=== PATIENT | female | born 1985 ===

== ENCOUNTER 2018-03-29 09:02 | Emergency (ER) | payer OTHER ==
[2018-03-29 09:09] VITALS: BMI 25.7
[2018-03-29 09:11] VITALS: BP 115/68; PULSE 79; TEMP 98.8; O2SAT 100
[2018-03-29] MEDS ORDERED: Amoxicillin-Clav 875-125 mg Tab PO STA (09:33)
--- NOTE | 2018-03-29 09:36 | C.PDOC ---
History Of Present Illness 32 yo female, currently breast-feeding, comes in for evaluation of left breast pain, redness, swelling gradually developed for past 2 days. Pt denies fever, chills, open wounds, CP, SOB, dyspnea, denies previous sx in past, denies any other active complaints. Ambulate to Ed for evaluation, not in any apparent distress. Time Seen by Provider: 03/29/18 09:03 Chief Complaint (Nursing): Breast Problem History Per: Patient Past Medical History Reviewed: Historical Data, Nursing Documentation, Vital Signs Vital Signs: Last Vital Signs Temp 98.8 F 03/29/18 09:10 Pulse 79 03/29/18 09:10 Resp 17 03/29/18 09:10 BP 115/68 03/29/18 09:10 Pulse Ox 100 03/29/18 09:10 - Medical History PMH: No Chronic Diseases Family History: States: Unknown Family Hx - Social History Hx Tobacco Use: No Hx Alcohol Use: No Hx Substance Use: No - Immunization History Hx Tetanus Toxoid Vaccination: No Review Of Systems Except As Marked, All Systems Reviewed And Found Negative. Constitutional: Negative for: Fever, Chills ENT: Negative for: Nose Congestion, Throat Pain Cardiovascular: Negative for: Chest Pain, Palpitations Respiratory: Negative for: Cough, Shortness of Breath, Wheezing Gastrointestinal: Negative for: Nausea, Vomiting, Abdominal Pain, Diarrhea Genitourinary: Negative for: Dysuria Musculoskeletal: Negative for: Neck Pain, Back Pain Skin: Positive for: Other (left breast pain, swelling, redness). Negative for: Lesions Neurological: Negative for: Headache, Dizziness Physical Exam - Physical Exam Appears: Well, Non-toxic, No Acute Distress Skin: Normal Color, Warm, Dry, No Rash Head: Normacephalic Eye(s): bilateral: PERRL Nose: No Flaring Oral Mucosa: Moist Throat: No Erythema, No Drooling Neck: Trachea Midline, Supple Chest: Symmetrical, Other (left breast: tenderness mass with mild erythema at 3 o'clock. NO open wound, no niplle changes.) Cardiovascular: Rhythm Regular, No Murmur, No JVD Respiratory: No Decreased Breath Sounds, No Accessory Muscle Use, No Stridor, No Wheezing Gastrointestinal/Abdominal: Soft, No Tenderness, No Distention, No Guarding, No Rebound Back: No CVA Tenderness Extremity: Normal ROM, No Deformity, No Swelling Neurological/Psych: Oriented x3, Normal Speech ED Course And Treatment O2 Sat by Pulse Oximetry: 100 Pulse Ox Interpretation: Normal Progress Note: On re-eval, pt is afebrile, hemodynamicaly stable. Non-toxic. neck: Supple, (-) JVD. Lungs: CTA B/L, BS equal B/L. left breast: exam c/w mastitis. NO open wounds, no nipple changes. Right breast exam- normal. Abd: benign, (-) guarding, (-) rebound. Back: (-) CVA tenderness. Pt advised on course of ds. ref. to f/u with PMD, THER[employer]S SUPERVISOR in 2-3 days for re-eval. return if any new changes. Disposition Counseled Patient/Family Regarding: Diagnosis, Need For Followup, Rx Given - Disposition Referrals: [facility] [Outside] [facility] [Outside] Disposition: HOME/ ROUTINE Disposition Time: 09:34 Condition: STABLE Additional Instructions: Warm compresses to painful area of breast Empty breast during the breast pumping completely take medication as prescribed follow up with [employer]ER[employer]S SUPERVISOR in 2-3 days for re-evaluation. return to ED if any worsening or new changes. Prescriptions: Amoxicillin/Clavulanate [Augmentin 875 MG-125 MG] 1 tab PO BID #14 tab Instructions: Breast Care for the Breast Feeding Mother (ED), Common Problems, Mastitis Print Language: BELARUSIAN - Clinical Impression Clinical Impression: Mastitis
[2018-03-29] MEDS ORDERED: Amoxicillin-Clav 875-125 mg Tab PO ONE (09:43)
[2018-03-29 09:52] VITALS: RESP 18
== END 2018-03-29 09:51 | disposition home or self-care (01) ==
LOC: C.ER 09:02
DX: N61.0 Mastitis without abscess (principal)

== ENCOUNTER 2018-03-31 23:22 | Observation (INO) | payer OTHER ==
[2018-03-31 23:22] VITALS: BMI 25.7
--- NOTE | 2018-04-01 00:16 | C.PDOC ---
History Of Present Illness Patient presents to the ER with a complaint of left breast pain. Patient is currently breast feeding, she was seen here 2-3 days ago for similar complaint, she has been compliant with her medications, applying warm compresses, but st ates her her symptoms have been worsening. She has also been using a pump to drain her breast with no relief. Denies fever or chills. Time Seen by Provider: 04/01/18 00:16 Chief Complaint (Nursing): Breast Problem History Per: Patient History/Exam Limitations: no limitations Onset/Duration Of Symptoms: Days Current Symptoms Are (Timing): Still Present Severity: Moderate Pain Scale Rating Of: 4 Recent travel outside of the [place]: No Past Medical History Reviewed: Historical Data, Nursing Documentation, Vital Signs Vital Signs: Last Vital Signs Temp 99.0 F 03/31/18 23:31 Pulse 109 H 03/31/18 23:31 Resp 18 03/31/18 23:31 BP 111/70 03/31/18 23:31 Pulse Ox 99 03/31/18 23:31 Family History: States: No Known Family Hx - Social History Hx Tobacco Use: No Hx Alcohol Use: No Hx Substance Use: No - Immunization History Hx Tetanus Toxoid Vaccination: No Review Of Systems Constitutional: Negative for: Fever, Chills Cardiovascular: Negative for: Chest Pain, Palpitations Respiratory: Negative for: Cough, Shortness of Breath Gastrointestinal: Negative for: Nausea, Vomiting Musculoskeletal: Positive for: Other (Left breast pain) Neurological: Negative for: Weakness, Numbness Physical Exam - Physical Exam Appears: Non-toxic Skin: Warm, Dry Head: Normacephalic Eye(s): bilateral: Normal Inspection Oral Mucosa: Moist Neck: Trachea Midline, Supple Chest: Other (6x10cm area of induration to left upper lateral quadrant of left breast with mild diffuse erythema, lactating, no exudates.) Cardiovascular: Rhythm Regular Respiratory: No Rales, No Rhonchi, No Wheezing Gastrointestinal/Abdominal: Soft, No Tenderness Neurological/Psych: Oriented x3 ED Course And Treatment - Laboratory Results Result Diagrams: 04/01/18 00:47 04/01/18 00:47 O2 Sat by Pulse Oximetry: 99 (room air) Pulse Ox Interpretation: Normal Progress Note: Blood work, urinalysis, and breast US ordered. IV fluids administered. Disposition Discussed With : Mac Nam Comment: accepted the pt on her service and took over the care at 3:49 AM Doctor Will See Patient In The: ED Counseled Patient/Family Regarding: Studies Performed, Diagnosis - Disposition Disposition: HOSPITALIZED Disposition Time: 00:16 Condition: FAIR Forms: [facility] (Kazakh) - POA Present On Arrival: None - Clinical Impression Clinical Impression: Abscess of breast - Scribe Statement The provider has reviewed the documentation as recorded by the Scribe Armaan Reid All medical record entries made by the Scribe were at my direction and personally dictated by me. I have reviewed the chart and agree that the record accurately reflects my personal performance of the history, physical exam, medical decision making, and the department course for this patient. I have also personally directed, reviewed, and agree with the discharge instructions and disposition. Decision To Admit - Pt Status Changed To: Hospital Disposition Of: Inpatient - Admit Certification Admit to Inpatient:: After my assessment, the patient will require hospitaliz ation for at least two midnights. This is because of the severity of symptoms shown, intensity of services needed, and/or the medical risk in this patient being treated as an outpatient. - InPatient: Physician Admission Certification: I certify that this patient requires 2 or more midnights of care for the following reason:: After my assessment, the patient will require hospitalization for at least two midnights. This is because of the severity of symptoms shown, intensity of services needed, and/or the medical risk in this patient being treated as an outpatient. - . Bed Request Type: Regular Admitting Physician: Mac Nam Patient Diagnosis: Abscess of breast
[2018-04-01] MEDS ORDERED: Sodium Chloride 0.9% 1,000 ML IV ONE (00:24)
[2018-04-01 00:54] LABS: BASO # 0.1 K/uL (0.0-0.2); BASO % 0.4 % (0.0-2.0); EOS # 0.1 K/uL (0.0-0.7); EOS % 0.7 % (0.0-4.0); HEMOGLOBIN 9.6 g/dL (11.0-16.0); LYMPH # 1.7 K/uL (1.0-4.3); MEAN CORPUSCULAR HEMOGLOBIN 25.7 pg (27.0-31.0); MEAN PLATELET VOLUME 8.2 fL (7.2-11.7); MONO % 6.2 % (0.0-10.0); NEUT # 13.7 K/uL (1.8-7.0); NEUT % 82.7 % (50.0-75.0); RBC 3.75 Mil/uL (3.80-5.20); RED CELL DISTRIBUTION WIDTH 12.5 % (11.5-14.5); WHITE BLOOD COUNT 16.6 K/uL (4.8-10.8)
[2018-04-01] MEDS ORDERED: Sodium Chloride 0.9% 1,000 ML ONE (00:59)
[2018-04-01 01:00] LABS: INR 1.3; PROTHROMBIN TIME 14.7 SECONDS (9.7-12.2)
[2018-04-01 01:09] LABS: ALB/GLOB RATIO 1.1 (1.0-2.1); ALBUMIN 3.9 g/dL (3.5-5.0); ALT/SGPT 21 U/L (9-52); AST/SGOT 16 U/L (14-36); BLOOD UREA NITROGEN 10 mg/dL (7-17); CALCIUM 8.7 mg/dl (8.6-10.4); GFR NON-AFRICAN AMERICAN > 60
[2018-04-01 01:12] LABS: VENOUS BLOOD GAS BASE EXCESS -1.7 mmol/L (0.0-2.0); VENOUS BLOOD GAS PCO2 38 mmHg (40-60); VENOUS BLOOD GAS PO2 29 mm/Hg (30-55); VENOUS BLOOD PH 7.39 (7.32-7.43)
[2018-04-01] MEDS ORDERED: cefTRIAXone IV 1 gm in Dextros 50 ML IVPB ONE (01:14)
[2018-04-01] MEDS ORDERED: cefTRIAXone 1 gm 1 GM/100 ML BAG IVPB ONE (01:24)
[2018-04-01 03:00] LABS: SQUAMOUS EPITHIAL 3 /hpf (0-5); URINE BACTERIA RARE (<OCC); URINE BILIRUBIN NEGATIVE (NEGATIVE); URINE CLARITY Clear (Clear); URINE COLOR Colorless (YELLOW); URINE GLUCOSE (UA) NORMAL (Normal); URINE LEUKOCYTE ESTERASE NEG Leu/uL (Negative); URINE PROTEIN NEGATIVE (NEGATIVE); URINE UROBILINOGEN NORMAL mg/dL (0.2-1.0)
[2018-04-01 03:01] LABS: URINE BLOOD TRACE (NEGATIVE)
--- NOTE | 2018-04-01 05:31 | CP.PCM.HP ---
History of Present Illness - History of Present Illness History of Present Illness: H&P for Dr. Nam CC: abscesses of the left breast Pt is a 32F who denies any significant PMH, PSH, 2 month post- first child, currently breast-feeding, who presented to ED for worsening redness and swelling of the left lateral breast. Patient states that the swelling and erythema started 2 weeks ago and she came to ER 2 days ago, when no drainable mass was discovered, and she was discharged with PO amoxicillin and instructions for warm compresses and gynecology follow up. Symptoms worsened with subjective fevers at home so patient came to ER. Patient denies any drainage from the area, any changes in her milk characteristics, chest pain, SOB, other masses, or any other symptoms. Patient states that she is pumping her milk without difficulty. Denies any family history of any breast cancer. US was performed with showed a 6.7cm fluid collection around 1-2 o'clock and another smaller fluid collection around 12 o'clock and benign appearing L axilla lymph node. Present on Admission - Present on Admission Any Indicators Present on Admission: No Review of Systems - Review of Systems All systems: reviewed and no additional remarkable complaints except (as per HPI) Past Patient History - Past Social History Smoking Status: Never Smoked - GENITOURINARY/GYNECOLOGICAL Other/Comment: 11 weeks - PSYCHIATRIC Hx Substance Use: No - SURGICAL HISTORY Hx Surgeries: No - ANESTHESIA Hx Anesthesia: Yes Hx Anesthesia Reactions: No Hx Malignant Hyperthermia: No Meds Allergies/Adverse Reactions: Allergies Allergy/AdvReac Type Severity Reaction Status Date / Time No Known Allergies Allergy Verified 03/29/18 09:08 Physical Exam - Constitutional Appears: Well, Non-toxic, No Acute Distress - Head Exam Head Exam: ATRAUMATIC, NORMOCEPHALIC - Eye Exam Eye Exam: Normal appearance. absent: Conjunctival injection, Scleral icterus - ENT Exam ENT Exam: Mucous Membranes Moist, Normal Oropharynx - Respiratory Exam Respiratory Exam: NORMAL BREATHING PATTERN. absent: Accessory Muscle Use, Respiratory Distress - Cardiovascular Exam Cardiovascular Exam: RRR - GI/Abdominal Exam GI & Abdominal Exam: Soft. absent: Distended, Tenderness - Extremities Exam Extremities exam: Positive for: pedal pulses present. Negative for: calf tenderness, pedal edema - Neurological Exam Neurological exam: Alert, Oriented x3 - Psychiatric Exam Psychiatric exam: Normal Affect, Normal Mood - Skin Skin Exam: Dry, Intact, Warm Additional comments: left breast with area of erythema approximately 10cm across around 12-3 o'clock, subcutaneous induration, area of fluctuance around 2 oclock. NO other overlying skin changes BL, no other palpable masses in either breast, BL milky discharge from the nipples, no blood. L axilla with palpable lymphnode Results - Vital Signs Recent Vital Signs: Last Vital Signs Temp 98.1 F 04/01/18 04:00 Pulse 87 04/01/18 04:00 Resp 20 04/01/18 04:00 BP 106/69 04/01/18 04:00 Pulse Ox 99 04/01/18 04:42 - Labs Result Diagrams: 04/01/18 00:47 04/01/18 00:47 Labs: Laboratory Results - last 24 hr 04/01/18 04/01/18 04/01/18 00:47 00:47 00:47 WBC 16.6 H RBC 3.75 L Hgb 9.6 L Hct 29.2 L MCV 78.0 L MCH 25.7 L MCHC 33.0 RDW 12.5 Plt Count 367 MPV 8.2 Neut % (Auto) 82.7 H Lymph % (Auto) 10.0 L [place] % (Auto) 6.2 Eos % (Auto) 0.7 Baso % (Auto) 0.4 Neut # (Auto) 13.7 H Lymph # (Auto) 1.7 [place] # (Auto) 1.0 H Eos # (Auto) 0.1 Baso # (Auto) 0.1 PT 14.7 H INR 1.3 APTT 37 H pO2 VBG pH VBG pCO2 VBG HCO3 VBG Total CO2 VBG O2 Sat (Calc) VBG Base Excess VBG Potassium Glucose Lactate Sodium 136 Potassium 3.2 L Chloride 103 Carbon Dioxide 20 L Anion Gap 16 BUN 10 Creatinine 0.7 Est GFR ( Amer) > 60 Est GFR (Non-Af Amer) > 60 Random Glucose 149 H Calcium 8.7 Total Bilirubin 0.3 AST 16 ALT 21 Alkaline Phosphatase 113 Total Protein 7.3 Albumin 3.9 Globulin 3.4 Albumin/Globulin Ratio 1.1 Venous Blood Potassium Urine Color Urine Clarity Urine pH Ur Specific [place] Urine Protein Urine Glucose (UA) Urine Ketones Urine Blood Urine Nitrate Urine Bilirubin Urine Urobilinogen Ur Leukocyte Esterase Urine WBC (Auto) Urine RBC (Auto) Ur Squamous Epith Cells Urine Bacteria 04/01/18 04/01/18 01:06 02:40 WBC RBC Hgb Hct MCV MCH MCHC RDW Plt Count MPV Neut % (Auto) Lymph % (Auto) [place] % (Auto) Eos % (Auto) Baso % (Auto) Neut # (Auto) Lymph # (Auto) [place] # (Auto) Eos # (Auto) Baso # (Auto) PT INR APTT pO2 29 L VBG pH 7.39 VBG pCO2 38 L VBG HCO3 22.4 VBG Total CO2 24.2 VBG O2 Sat (Calc) 52.9 VBG Base Excess -1.7 L VBG Potassium 3.0 L Glucose 138 H Lactate 1.1 Sodium 140.0 Potassium Chloride 108.0 H Carbon Dioxide Anion Gap BUN Creatinine Est GFR ( Amer) Est GFR (Non-Af Amer) Random Glucose Calcium Total Bilirubin AST ALT Alkaline Phosphatase Total Protein Albumin Globulin Albumin/Globulin Ratio Venous Blood Potassium 3.0 L Urine Color Colorless Urine Clarity Clear Urine pH 6.0 Ur Specific [place] 1.003 Urine Protein Negative Urine Glucose (UA) Normal Urine Ketones Negative Urine Blood Trace H Urine Nitrate Negative Urine Bilirubin Negative Urine Urobilinogen Normal Ur Leukocyte Esterase Neg Urine WBC (Auto) 1 Urine RBC (Auto) 1 Ur Squamous Epith Cells 3 Urine Bacteria Rare Assessment & Plan - Assessment and Plan (Free Text) Assessment: 32 y/o lactating F with left breast abscess Plan: OR today for incision and drainage of left breast abscesses IV antibiotics Warm compresses IVF PRN pain medication and antipyretics Patient should continue pumping left breast and dispose of milk. Patient may pump and store milk from right breast NPO Discussed with Dr. Nam, who agrees with above Porsha Mondragon PGY2 Decision To Admit - Pt Status Changed To: Hospital Disposition Of: Observation - . Bed Request Type: Regular
[2018-04-01] MEDS ORDERED: Vancomycin 1 GM 1 GM/250 ML BAG IVPB ONE (09:15)
[2018-04-01] MEDS ORDERED: Lactated Ringer's 1,000 ML IV ONE ×2 (13:20→16:00)
[2018-04-01] MEDS ORDERED: Propofol 10 mg/ml Inj (20 ML) ONE (13:30)
[2018-04-01] MEDS ORDERED: Midazolam 2 MG/2 ML VIAL ONE (13:30)
[2018-04-01] MEDS ORDERED: Oxycodone/Acetaminophen 5/325 mg Tab PO PRN (14:02)
--- NOTE | 2018-04-01 14:05 | PCM.SURG1 ---
Surgeon's Initial Post Op Note - Surgeon's Notes Surgeon: Dr. Welch Funeral Car Driver: None Type of Anesthesia: General LMA Pre-Operative Diagnosis: Mastitis w absecess L breast Operative Findings: L breast lateral 10cm from nipple 30cc absscess, L lateral 5cm from nipple 15cc of abscess Post-Operative Diagnosis: Same Operation Performed: aspiration of L breast abscesses Specimen/Specimens Removed: abscess Estimated Blood Loss: EBL {In ML}: 1 Blood Products Given: N/A Drains Used: No Drains Post-Op Condition: Good Date of Surgery/Procedure: 04/01/18 Time of Surgery/Procedure: 14:04
--- NOTE | 2018-04-01 14:06 | US ---
Date of service: 04/01/2018 PROCEDURE: LEFT BREAST ULTRASOUND HISTORY: large abscess, lactating COMPARISON: None available. TECHNIQUE: Using high-frequency linear transducer, high-resolution ultrasonography of the left breast was performed in multiple projections for evaluation of palpable abnormalities in this patient who is reportedly lactating for the past 2 months. FINDINGS: At the 12 o'clock radius 3 cm from the nipple in an area of palpable abnormality is a hypoechoic heterogeneous area measuring 3.7 by 4.2 x 2.7 cm, parallel, avascular with posterior acoustic enhancement and no associated shadowing. 1-2 o'clock radius 3 cm from the nipple in a 2nd area wall abnormality is a more hypoechoic lesion measuring 6.8 x 4.7 x 7.2 cm somewhat less heterogeneous in echotexture but with extensive posterior acoustic enhancement related, also avascular and parallel. Both of these hypoechoic foci are most suggestive of large abscesses and consideration of surgical consultation is recommended. Differential diagnosis could be too large fibroadenomata. A benign lymph node is seen with thin cortices at the left axilla measuring 2.0 x 0.9 cm. IMPRESSION: Two large abscesses are favored over large fibroadenomata or other soft tissue masses at the midline and upper outer quadrant left breast corresponding to areas of palpable abnormalities. Surgical consultation is recommended. BIRADS 2 Benign finding Recommendation: Continue annual screening mammography, as per ACR guidelines. Concordant preliminary report from [facility], 04/01/2018.
[2018-04-01] MEDS ORDERED: HYDROmorphone 0.5 mg/0.5 ml ISec IVP PRN (14:15)
[2018-04-01] MEDS ORDERED: Lactated Ringer's 1,000 ML IV SCH (14:15)
[2018-04-01 16:52] VITALS: RESP 20
[2018-04-02 06:57] LABS: BASO # 0.1 K/uL (0.0-0.2); BASO % 0.4 % (0.0-2.0); EOS # 0.1 K/uL (0.0-0.7); HEMOGLOBIN 8.7 g/dL (11.0-16.0); LYMPH # 1.8 K/uL (1.0-4.3); LYMPH % 13.1 % (20.0-40.0); MEAN CELL VOLUME 78.4 fL (81.0-99.0); MEAN CORPUSCULAR HEMOGLOBIN 26.5 pg (27.0-31.0); MEAN CORPUSCULAR HGB CONC 33.7 g/dL (33.0-37.0); MEAN PLATELET VOLUME 8.5 fL (7.2-11.7); MONO # 0.8 K/uL (0.0-0.8); MONO % 5.9 % (0.0-10.0); NEUT # 11.3 K/uL (1.8-7.0); NEUT % 79.6 % (50.0-75.0); RBC 3.29 Mil/uL (3.80-5.20); RED CELL DISTRIBUTION WIDTH 12.6 % (11.5-14.5); WHITE BLOOD COUNT 14.1 K/uL (4.8-10.8)
--- NOTE | 2018-04-02 18:01 | CP.PCM.DIS ---
Provider - Provider Date of Admission: 04/01/18 04:40 Attending physician: Mac Nam MD Consults: consult Time Spent in preparation of Discharge (in minutes): 30 Hospital Course - Lab Results Lab Results: Micro Results 04/01/18 18:08 Breast - Left Gram Stain - Final 04/01/18 18:08 Breast - Left Wound Culture - Preliminary Gram Positive Cocci 04/01/18 00:57 Blood Blood Culture - Preliminary NO GROWTH AFTER 24 HOURS 04/01/18 00:49 Blood Blood Culture - Preliminary NO GROWTH AFTER 24 HOURS Most Recent Lab Values WBC 14.1 K/uL (4.8-10.8) H 04/02/18 06:48 RBC 3.29 Mil/uL (3.80-5.20) L 04/02/18 06:48 Hgb 8.7 g/dL (11.0-16.0) L 04/02/18 06:48 Hct 25.8 % (34.0-47.0) L 04/02/18 06:48 MCV 78.4 fL (81.0-99.0) L 04/02/18 06:48 MCH 26.5 pg (27.0-31.0) L 04/02/18 06:48 MCHC 33.7 g/dL (33.0-37.0) 04/02/18 06:48 RDW 12.6 % (11.5-14.5) 04/02/18 06:48 Plt Count 324 K/uL (130-400) 04/02/18 06:48 MPV 8.5 fL (7.2-11.7) 04/02/18 06:48 Neut % (Auto) 79.6 % (50.0-75.0) H 04/02/18 06:48 Lymph % (Auto) 13.1 % (20.0-40.0) L 04/02/18 06:48 [place] % (Auto) 5.9 % (0.0-10.0) 04/02/18 06:48 Eos % (Auto) 1.0 % (0.0-4.0) 04/02/18 06:48 Baso % (Auto) 0.4 % (0.0-2.0) 04/02/18 06:48 Neut # (Auto) 11.3 K/uL (1.8-7.0) H 04/02/18 06:48 Lymph # (Auto) 1.8 K/uL (1.0-4.3) 04/02/18 06:48 [place] # (Auto) 0.8 K/uL (0.0-0.8) 04/02/18 06:48 Eos # (Auto) 0.1 K/uL (0.0-0.7) 04/02/18 06:48 Baso # (Auto) 0.1 K/uL (0.0-0.2) 04/02/18 06:48 PT 14.7 SECONDS (9.7-12.2) H 04/01/18 00:47 INR 1.3 04/01/18 00:47 APTT 37 SECONDS (21-34) H 04/01/18 00:47 pO2 29 mm/Hg (30-55) L 04/01/18 01:06 VBG pH 7.39 (7.32-7.43) 04/01/18 01:06 VBG pCO2 38 mmHg (40-60) L 04/01/18 01:06 VBG HCO3 22.4 mmol/L 04/01/18 01:06 VBG Total CO2 24.2 mmol/L (22-28) 04/01/18 01:06 VBG O2 Sat (Calc) 52.9 % (40-65) 04/01/18 01:06 VBG Base Excess -1.7 mmol/L (0.0-2.0) L 04/01/18 01:06 VBG Potassium 3.0 mmol/L (3.6-5.2) L 04/01/18 01:06 Sodium 140.0 mmol/l (132-148) 04/01/18 01:06 Chloride 108.0 mmol/L (98-107) H 04/01/18 01:06 Glucose 138 mg/dl (65-105) H 04/01/18 01:06 Lactate 1.1 mmol/L (0.7-2.1) 04/01/18 01:06 Sodium 136 mmol/L (132-148) 04/01/18 00:47 Potassium 3.2 mmol/L (3.6-5.2) L 04/01/18 00:47 Chloride 103 mmol/L (98-107) 04/01/18 00:47 Carbon Dioxide 20 mmol/L (22-30) L 04/01/18 00:47 Anion Gap 16 (10-20) 04/01/18 00:47 BUN 10 mg/dL (7-17) 04/01/18 00:47 Creatinine 0.7 mg/dL (0.7-1.2) 11 00:47 Est GFR ( Amer) > 60 04/01/18 00:47 Est GFR (Non-Af Amer) > 60 04/01/18 00:47 Random Glucose 149 mg/dL (65-105) H 04/01/18 00:47 Calcium 8.7 mg/dl (8.6-10.4) 04/01/18 00:47 Total Bilirubin 0.3 mg/dL (0.2-1.3) 04/01/18 00:47 AST 16 U/L (14-36) 04/01/18 00:47 ALT 21 U/L (9-52) 04/01/18 00:47 Alkaline Phosphatase 113 U/L (38-126) 04/01/18 00:47 Total Protein 7.3 g/dL (6.3-8.3) 04/01/18 00:47 Albumin 3.9 g/dL (3.5-5.0) 04/01/18 00:47 Globulin 3.4 gm/dL (2.2-3.9) 04/01/18 00:47 Albumin/Globulin Ratio 1.1 (1.0-2.1) 04/01/18 00:47 Venous Blood Potassium 3.0 mmol/L (3.6-5.2) L 04/01/18 01:06 Urine Color Colorless (YELLOW) 04/01/18 02:40 Urine Clarity Clear (Clear) 04/01/18 02:40 Urine pH 6.0 (5.0-8.0) 04/01/18 02:40 Ur Specific [place] 1.003 (1.003-1.030) 04/01/18 02:40 Urine Protein Negative mg/dL (NEGATIVE) 04/01/18 02:40 Urine Glucose (UA) Normal mg/dL (Normal) 04/01/18 02:40 Urine Ketones Negative mg/dL (NEGATIVE) 04/01/18 02:40 Urine Blood Trace (NEGATIVE) H 04/01/18 02:40 Urine Nitrate Negative (NEGATIVE) 04/01/18 02:40 Urine Bilirubin Negative (NEGATIVE) 04/01/18 02:40 Urine Urobilinogen Normal mg/dL (0.2-1.0) 04/01/18 02:40 Ur Leukocyte Esterase Neg [place]/uL (Negative) 04/01/18 02:40 Urine WBC (Auto) 1 /hpf (0-5) 04/01/18 02:40 Urine RBC (Auto) 1 /hpf (0-3) 04/01/18 02:40 Ur Squamous Epith Cells 3 /hpf (0-5) 04/01/18 02:40 Urine Bacteria Rare (<OCC) 04/01/18 02:40 - Hospital Course Hospital Course: 32yo F with no PMHx who is 2 month post- and currently breast-feeding, pre sented to ED for worsening redness and swelling of the left lateral breast. Patient states that the swelling and erythema started 2 weeks ago and she came to ER 2 days prior, when no drainable mass was discovered, and she was discharged with PO amoxicillin and instructions for warm compresses and gynecology follow up. Symptoms worsened with subjective fevers at home so patient returned to ER. Patient denies any drainage from the area, any changes in her milk characteristics, chest pain, SOB, other masses, or any other symptoms. Patient states that she is pumping her milk without difficulty. Denies any family history of any breast cancer. US was performed with showed a 6.7cm fluid collection around 1-2 o'clock and another smaller fluid collection around 12 o'clock and benign appearing L axilla lymph node. On 04/01/18, she was taken to the OR for aspiration of 2 left breast abscesses. On POD#1, she was tolerating her diet, no pain and she was discharged home with instructions to take Keflex and follow up with Dr. Nam in her office Discharge Exam - Head Exam Head Exam: ATRAUMATIC, NORMOCEPHALIC - Eye Exam Eye Exam: EOMI, Normal appearance - Respiratory Exam Respiratory Exam: NORMAL BREATHING PATTERN. absent: Respiratory Distress - Cardiovascular Exam Cardiovascular Exam: +S1, +S2 Additional comments: Left breast dressings clean/dry/intact - GI/Abdominal Exam GI & Abdominal Exam: Soft. absent: Distended, Firm, Rebound, Rigid, Tenderness - Neurological Exam Neurological exam: Alert, CN II-XII Intact, Oriented x3 - Psychiatric Exam Psychiatric exam: Normal Affect, Normal Mood Discharge Plan - Discharge Medications Prescriptions: Cephalexin [cephalexin] 250 mg PO Q6 7 Days #28 cap - Follow Up Plan Condition: FAIR Disposition: HOME/ ROUTINE Patient education suggested?: Yes Instructions: Breast Abscess Drainage (DC) Additional Instructions: finish keflex for 7days. Ok to breast feed after antibiotics Pump and dump 1 time before breast feeding Do not breast feed from left breast Referrals: Mac Nam MD [Staff Provider] -
[2018-04-03] MEDS ORDERED: Pneumococcal 23-Valent Vaccine IM ONE (08:00)
[2018-04-03 08:09] VITALS: BP 121/76; PULSE 95; TEMP 98.8; O2SAT 97
--- NOTE | 2018-04-03 19:44 | PCM.OP ---
Operative Report - Operative Report Date of Surgery/Procedure: 04/01/18 Time of Surgery/Procedure: 13:00 Surgeon: Rebekah Correctional Supervisor Lieutenant: Jade Ruiz Anesthesia/Sedation: General LMA Pre-Operative Diagnosis: L breast abscess w mastitis, cellulitis Post-Operative Diagnosis: L breast abscess with mastitis, cellulitis Indication for Surgery: L breast abscess with cellulitis Operative Findings: L breast lateral 10cm from nipple 30cc absscess, L lateral 5cm from nipple 15cc of abscess, cellulitis Procedure/Operation Description: With the patient in the supine position under deep IV ssedation, the Left breast was prepped and draped in the usual steril manner. Two fluctuant collection was palpable on the left breast 10 cm lateral from the nipple and 5 cm lateral from the nipple. L breast lateral 10cm from nipple 30cc absscess and L lateral 5cm from nipple 15cc of abscess were aspirated using an 18 guage needle. Culture was taken. There was significantly less swelling noted after aspiration. Dry sterile dressings were applied. The patient tolerated the procedure well and transferred to recoverty room in stable condition. Estimated Blood Loss: 1 Sponge/Instrument Count: correct Drains: none Complications: none Specimen: abscess fluids Discharge & Condition: sent to PACU
--- NOTE | 2018-04-03 21:47 | OP ---
PROCEDURE DATE: 04/01/2018 PREOPERATIVE DIAGNOSIS: Mastitis with abscess, left breast. POSTOPERATIVE DIAGNOSIS: Mastitis with abscess, left breast, lactational. PROCEDURE: Aspiration of left breast abscesses. SURGEON: Mac Nam MD ANESTHESIA: General. ANESTHESIOLOGIST: Tim Cohen CRNA DESCRIPTION OF OPERATION: With the patient in the supine position under adequate general anesthesia, the left breast was prepped and draped in the usual sterile manner. The patient was noted to have a large fluctuant area in the lateral portion of the left breast and using a 19-gauge needle, approximately 30 mL of slightly green tinted milky fluid was aspirated from this area. Cultures were taken. Using a separate needle, a smaller collection was also aspirated at the upper portion of the areolar margin with approximately 10 mL of fluid aspirated. After aspiration of both areas, gentle massage was performed to express milk from the nipple area with decrease in swelling. Dry sterile dressings were applied. The patient tolerated the procedure well and transferred to recovery room in stable condition. Estimated blood loss for the procedure was 1 mL. Mac Nam MD
--- NOTE | 2018-04-04 03:53 | OP ---
PROCEDURE DATE: 04/01/2018 TIME OF THE SURGERY: 1 p.m. SURGEON: Mac Nam MD INSTRUMENT SPECIALIST: Jade Ruiz DO ANESTHESIA: General LMA. PREOPERATIVE DIAGNOSIS: Left breast abscess with mastitis and cellulitis. POSTOPERATIVE DIAGNOSIS: Left breast abscess with mastitis and cellulitis. INDICATIONS FOR SURGERY: Left breast abscess with cellulitis. OPERATIVE FINDINGS: Left breast lateral 10 cm from the nipple, 30 mL abscess; left breast 5 cm lateral from the nipple, 15 mL of abscess fluids and cellulitis. OPERATIVE DESCRIPTION: With the patient in the supine position under deep IV sedation, the left breast was prepped and draped in the usual sterile fashion. Two fluctuant collections were palpable in the left breast, 10 cm lateral from the nipple, and 5 cm lateral from the nipple. Left breast 10 cm lateral from the nipple, 30 mL abscess fluid; and 5 cm lateral from the nipple, 15 mL of abscess was aspirated using an 18-gauge needle. Cultures were taken. There was significantly less swelling noted after aspirations. Dry sterile dressing was applied. The patient tolerated the procedure well and transferred to the recovery room in the stable fashion. Estimated blood loss was 1 mL. Sponge and instrument counts were correct. No drains were placed. No complications. Specimen was abscess fluid, and the patient was sent to PACU in good condition. Dr. Nam was present for the entire time. Jade Ruiz DO Mac Nam MD
--- NOTE | 2018-04-17 18:29 | CP.PCM.DIS ---
Provider - Provider Date of Admission: 04/01/18 04:40 Attending physician: Mac Nam MD Consults: 04/01/18 22:39 Consult Routine Comment: Physician Instructions: Reason For Exam: BREAST FEEDING Time Spent in preparation of Discharge (in minutes): 10 Diagnosis - Discharge Diagnosis (1) Abscess of breast Status: Acute Priority: High Onset Date: ~03/31/18 Comment: s/p surgical drainage with decrease in pain. Culture indicates MRSA Hospital Course - Lab Results Lab Results: Micro Results 04/01/18 18:08 Breast - Left Gram Stain - Final 04/01/18 18:08 Breast - Left Wound Culture - Final Methicillin Resistant S Aureus 04/01/18 00:57 Blood Blood Culture - Final NO GROWTH AFTER 5 DAYS 04/01/18 00:57 Blood Gram Stain - Final TEST NOT PERFORMED 04/01/18 00:49 Blood Blood Culture - Final NO GROWTH AFTER 5 DAYS 04/01/18 00:49 Blood Gram Stain - Final TEST NOT PERFORMED Most Recent Lab Values WBC 14.1 K/uL (4.8-10.8) H 04/02/18 06:48 RBC 3.29 Mil/uL (3.80-5.20) L 04/02/18 06:48 Hgb 8.7 g/dL (11.0-16.0) L 04/02/18 06:48 Hct 25.8 % (34.0-47.0) L 04/02/18 06:48 MCV 78.4 fL (81.0-99.0) L 04/02/18 06:48 MCH 26.5 pg (27.0-31.0) L 04/02/18 06:48 MCHC 33.7 g/dL (33.0-37.0) 04/02/18 06:48 RDW 12.6 % (11.5-14.5) 04/02/18 06:48 Plt Count 324 K/uL (130-400) 04/02/18 06:48 MPV 8.5 fL (7.2-11.7) 04/02/18 06:48 Neut % (Auto) 79.6 % (50.0-75.0) H 04/02/18 06:48 Lymph % (Auto) 13.1 % (20.0-40.0) L 04/02/18 06:48 [place] % (Auto) 5.9 % (0.0-10.0) 04/02/18 06:48 Eos % (Auto) 1.0 % (0.0-4.0) 04/02/18 06:48 Baso % (Auto) 0.4 % (0.0-2.0) 04/02/18 06:48 Neut # (Auto) 11.3 K/uL (1.8-7.0) H 04/02/18 06:48 Lymph # (Auto) 1.8 K/uL (1.0-4.3) 04/02/18 06:48 [place] # (Auto) 0.8 K/uL (0.0-0.8) 04/02/18 06:48 Eos # (Auto) 0.1 K/uL (0.0-0.7) 04/02/18 06:48 Baso # (Auto) 0.1 K/uL (0.0-0.2) 04/02/18 06:48 PT 14.7 SECONDS (9.7-12.2) H 04/01/18 00:47 INR 1.3 04/01/18 00:47 APTT 37 SECONDS (21-34) H 04/01/18 00:47 pO2 29 mm/Hg (30-55) L 04/01/18 01:06 VBG pH 7.39 (7.32-7.43) 04/01/18 01:06 VBG pCO2 38 mmHg (40-60) L 04/01/18 01:06 VBG HCO3 22.4 mmol/L 04/01/18 01:06 VBG Total CO2 24.2 mmol/L (22-28) 04/01/18 01:06 VBG O2 Sat (Calc) 52.9 % (40-65) 04/01/18 01:06 VBG Base Excess -1.7 mmol/L (0.0-2.0) L 04/01/18 01:06 VBG Potassium 3.0 mmol/L (3.6-5.2) L 04/01/18 01:06 Sodium 140.0 mmol/l (132-148) 04/01/18 01:06 Chloride 108.0 mmol/L (98-107) H 04/01/18 01:06 Glucose 138 mg/dl (65-105) H 04/01/18 01:06 Lactate 1.1 mmol/L (0.7-2.1) 04/01/18 01:06 Sodium 136 mmol/L (132-148) 04/01/18 00:47 Potassium 3.2 mmol/L (3.6-5.2) L 04/01/18 00:47 Chloride 103 mmol/L (98-107) 04/01/18 00:47 Carbon Dioxide 20 mmol/L (22-30) L 04/01/18 00:47 Anion Gap 16 (10-20) 04/01/18 00:47 BUN 10 mg/dL (7-17) 04/01/18 00:47 Creatinine 0.7 mg/dL (0.7-1.2) 04/01/18 00:47 Est GFR ( Amer) > 60 04/01/18 00:47 Est GFR (Non-Af Amer) > 60 04/01/18 00:47 Random Glucose 149 mg/dL (65-105) H 04/01/18 00:47 Calcium 8.7 mg/dl (8.6-10.4) 04/01/18 00:47 Total Bilirubin 0.3 mg/dL (0.2-1.3) 04/01/18 00:47 AST 16 U/L (14-36) 04/01/18 00:47 ALT 21 U/L (9-52) 04/01/18 00:47 Alkaline Phosphatase 113 U/L (38-126) 04/01/18 00:47 Total Protein 7.3 g/dL (6.3-8.3) 04/01/18 00:47 Albumin 3.9 g/dL (3.5-5.0) 04/01/18 00:47 Globulin 3.4 gm/dL (2.2-3.9) 04/01/18 00:47 Albumin/Globulin Ratio 1.1 (1.0-2.1) 04/01/18 00:47 Venous Blood Potassium 3.0 mmol/L (3.6-5.2) L 04/01/18 01:06 Urine Color Colorless (YELLOW) 04/01/18 02:40 Urine Clarity Clear (Clear) 04/01/18 02:40 Urine pH 6.0 (5.0-8.0) 04/01/18 02:40 Ur Specific [place] 1.003 (1.003-1.030) 04/01/18 02:40 Urine Protein Negative mg/dL (NEGATIVE) 04/01/18 02:40 Urine Glucose (UA) Normal mg/dL (Normal) 04/01/18 02:40 Urine Ketones Negative mg/dL (NEGATIVE) 04/01/18 02:40 Urine Blood Trace (NEGATIVE) H 04/01/18 02:40 Urine Nitrate Negative (NEGATIVE) 04/01/18 02:40 Urine Bilirubin Negative (NEGATIVE) 04/01/18 02:40 Urine Urobilinogen Normal mg/dL (0.2-1.0) 04/01/18 02:40 Ur Leukocyte Esterase Neg [place]nie/uL (Negative) 04/01/18 02:40 Urine WBC (Auto) 1 /hpf (0-5) 04/01/18 02:40 Urine RBC (Auto) 1 /hpf (0-3) 04/01/18 02:40 Ur Squamous Epith Cells 3 /hpf (0-5) 04/01/18 02:40 Urine Bacteria Rare (<OCC) 04/01/18 02:40 - Hospital Course Hospital Course: Patient 2 months post , admitted with lactational mastitis and abscess of breast. Drainage performed with aspiration of 150ml of pururlent material. Culture MRSA. Discharge Exam - Head Exam Head Exam: ATRAUMATIC, NORMOCEPHALIC - Skin Skin Exam: Normal Color Additional comments: L breast with decreased swelling, mild tenderness to UOQ Discharge Plan - Discharge Medications Prescriptions: Clindamycin [Cleocin] 300 mg PO Q6H 7 Days cap - Follow Up Plan Condition: FAIR Disposition: HOME/ ROUTINE Instructions: Breast Abscess Drainage (DC) Additional Instructions: Ok to breast feed after antibiotics Pump and dump 1 time before breast feeding Do not breast feed from left breast Referrals: Mac Nam MD [Staff Provider] - Clinical Quality Measures - Date & Time of Discharge Summary Date of Discharge Summary: 04/17/18 Time of Discharge Summary: 18:31
== END 2018-04-03 12:35 | disposition home or self-care (01) ==
LOC: C.ER 23:22 → INTOOBSV 04-01 04:40 → C.9E 04-01 04:40 → C.3T 04-01 16:41
PROVIDERS: ADMIT Specialist; ATTEND Specialist
PROC: 0H9U3ZZ Drainage of Left Breast, Percutaneous Approach (ICD-10-PCS; principal; 2018-04-01 14:00)
DX: N61.1 Abscess of the breast and nipple (principal); O91.23 Nonpurulent mastitis associated with lactation
CPT/HCPCS: 10160; 36415; 76642; 80053; 81001; 82803; 85025; 85610; 85730; 87040; 87070; 87181; 96361; 96365; 96366; 96367; 99285; G0378; J0696; J2250; J2704; J3010; J3370; J7030; J7120